=== PATIENT | female | born 2005 | race Caucasian/White ===

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

== ENCOUNTER 2025-01-21 15:24 | Emergency (ER) | payer BC, SELFPAY ==
[2025-01-21 15:37] VITALS: BP 108/68; PULSE 84; RESP 16; TEMP 36.6; O2SAT 100
[2025-01-21 15:46] LABS: EDUAAPPEAR Cloudy; EDUABILI Negative (Negative); EDUABLOOD 3+ (Negative); EDUACOLOR1 Dark; EDUAGLUCOSE Negative (Negative); EDUAKETONE Negative (Negative); EDUALEUKO 1+ (Negative); EDUANITRATE Negative (Negative); EDUAPH 5.5; EDUAPROTEIN Trace (Negative); EDUAUROBILI 0.2
--- NOTE | 2025-01-21 15:50 | ED_ITS ---
HPI - Female Genitourinary General Chief complaint: Urogenital-Female Stated complaint: UTI SYMPTOMS Time Seen by Provider: 01/21/25 15:40 Source: patient Mode of arrival: ambulatory Limitations: no limitations History of Present Illness HPI Narrative: 19-year-old female presents with complaint of urinary frequency, urgency, dysuria for 4 days. Taking [id number] azo to treat symptoms. Last took azo yesterday morning. Afebrile. Denies nausea vomiting. All systems reviewed and negative except as noted above. Related Data Home Medications ?Medication ?Instructions ?Recorded ?Confirmed ?Last Taken ?Type hydroxyzine HCl 25 mg tablet 1 tablet PO DAILY 03/15/22 01/21/25 Unknown History quetiapine 25 mg tablet 1 tablet PO HS 03/15/22 01/21/25 Unknown History sertraline 100 mg tablet 100 mg PO Q24H 01/21/25 01/21/25 Unknown History Allergies Allergy/AdvReac Type Severity Reaction Status Date / Time Sulfa (Sulfonamide AdvReac Mild Hives Verified 01/21/25 15:44 Antibiotics) Review of Systems Review of Systems: CONSTITUTIONAL: Denies fever, chills, or sweats. EYES: Denies visual changes, redness, or discharge. ENT: Denies rhinorrhea, congestion, sore throat, or otalgia. CARDIOVASCULAR: Denies chest pain, palpitations, or edema. RESPIRATORY: Denies cough or dyspnea. GASTROINTESTINAL: Denies abdominal pain, nausea, vomiting, or diarrhea. GENITOURINARY: Reports dysuria, urgency, frequency. Denies hematuria. SKIN: Denies rash or itching. MUSCULOSKELETAL: Denies back pain, joint pain, or myalgia. NEUROLOGIC: Denies headache, numbness, or weakness. PSYCHIATRIC: Denies anxiety or depression. All other systems reviewed are negative, except as documented in HPI. PMFSH Comments At time of signature, agree with nursing past medical, surgical, social and family history. There is no relevant family history pertinent to the presenting complaint. Exam Narrative: GENERAL: This is a well-nourished, well-developed patient, in no apparent distress. HEAD: normocephalic, atraumatic. EYES: PERRL. Sclera clear/white. Vision is grossly intact. EARS: External ears normal NOSE: External nose normal NECK: Neck supple, non-tender without lymphadenopathy, masses or thyromegaly. CARDIOVASCULAR: Regular rate and rhythm without murmurs, gallops, or rubs. RESPIRATORY: Clear to auscultation. Breath sounds equal bilaterally. No wheezes, rales, or rhonchi. SKIN: warm, Dry, intact with no suspicious lesions or rash, good texture and turgor. NEURO: awake, alert, and oriented to person, place and time. There were no obvious focal neurologic abnormalities. EXTREMITIES: No joint tenderness, effusion, or edema noted. Course Course Level of Care: Express Care Visit Vital Signs Vital signs: Vital Signs Temperature 36.6 C 01/21/25 15:37 Pulse Rate 84 01/21/25 15:37 Respiratory Rate 16 01/21/25 15:37 Blood Pressure 108/68 01/21/25 15:37 Pulse Oximetry 100 01/21/25 15:37 Temperature 36.6 C 01/21/25 15:37 Pulse Rate 84 01/21/25 15:37 Respiratory Rate 16 01/21/25 15:37 Blood Pressure 108/68 01/21/25 15:37 Pulse Oximetry 100 01/21/25 15:37 Reviewed MDM - Female Genitourinary MDM Narrative Medical decision making narrative: Urinalysis positive leukocytes, positive blood. Will treat with antibiotic for urinary tract infection. Patient is well-appearing, nontoxic. Okay for outpatient treatment Lab Data Labs: Lab Results 01/21/25 Range/Units 15:43 POC Urine Color Dark POC Urine Clarity Cloudy POC Urine pH 5.5 POC Ur Specif [place] 1.030 POC Urine Protein Trace (Negative) POC Ur Glucose (UA) Negative (Negative) POC Urine Ketones Negative (Negative) POC Urine Blood 3+ (Negative) POC Urine Nitrite Negative (Negative) POC Urine Bilirubin Negative (Negative) POC Urine Urobilinogen 0.2 POC U Leukocyte Esteras 1+ (Negative) Discharge Plan Discharge Clinical Impression: Urinary tract infection Patient Disposition: Home Condition: Stable Instructions: Antibiotic Form, Urinary Tract Infection in Women (ED) Additional Instructions: Take antibiotic as prescribed until gone. May continue to take [id number] azo to to urinary symptoms. Take as directed on packaging. Drink at least 64 oz of water a day. Follow-up with your doctor if symptoms are not improving. Patient Language: Swedish Prescriptions: New amoxicillin-pot clavulanate [Augmentin] 500-125 mg tablet 1 tablet PO BID 5 Days Qty: 10 0RF No Action quetiapine 25 mg tablet 1 tablet PO HS hydroxyzine HCl 25 mg tablet 1 tablet PO DAILY sertraline 100 mg tablet 100 mg PO Q24H Follow-up/Referrals: Maribeth Catalan MD [Primary Care Provider] - Time of Disposition: 15:49
== END 2025-01-21 15:53 | disposition home or self-care (01) ==
PROVIDERS: Emergency Provider Nurse Practitioner Family; PCP Pediatrics
DX: N39.0 Urinary tract infection, site not specified (principal)
CPT/HCPCS: 81003; 87086; 99213; G0463